=== PATIENT | male | born 1935 | race African-American/Black ===

== ENCOUNTER 2017-01-23 08:37 | Outpatient (CLI) | payer OTHER, MEDICARE ==
[2017-01-23] VITALS (10 sets, daily range): BP systolic 101–148; BP diastolic 58–84
[~2017-01-23] VITALS: Ht 172.7 cm; Wt 94.3 kg
[~2017-01-23 08:37] MED LIST: ACET325T9 PO; AMLO5TAB4 PO; CARV6.25 PO; FLAX1CAP6 PO; FURO-68 PO; Furosemide PO; HYDR-2869 PO; HYDR50TA6 PO; Hydralazine Hcl PO; LOSA1TAB16 PO; LOSA50TA2 PO; LOSA50TA6 PO; POTA10CA PO; RED600TA PO; RIVA10TA PO; RIVA20TA2 PO; WARF5TAB7 PO
[2017-01-23 09:15] LABS: CALCIUM 8.8 mg/dL (8.5-10.1); CREATININE 1.4 mg/dL (0.7-1.3); GFR 59.2
[2017-01-23 09:30] LABS: BASO % 1 % (0-3); EOS % 4 % (0-3); HEMATOCRIT 39.4 % (39.0-53.0); HEMOGLOBIN 13.3 g/dL (13.0-17.5); LYMPH # 1.7 x10^3/uL (1.0-4.8); LYMPH % 26 % (24-48); MEAN CORPUSCULAR HEMOGLOBIN 27 pg (25-35); MEAN CORPUSCULAR HGB CONC 34 g/dL (31-37); MEAN CORPUSCULAR VOLUME 81 fL (79-100); MONO % 11 % (0-9); NEUT % 58 % (31-73); PLATELET COUNT 112 x10^3/uL (140-400); RED BLOOD COUNT 4.86 x10^6/uL (4.30-5.70); RED CELL DISTRIBUTION WIDTH 15.2 % (11.5-14.5); WHITE BLOOD COUNT 6.7 x10^3/uL (4.0-11.0)
[2017-01-23 09:31] LABS: INR 1.2 (0.8-1.1); PROTHROMBIN TIME PATIENT 14.6 SEC (11.7-14.0)
[2017-01-23] MEDS ORDERED: LIDOCAINE 1% / SOD BICARB 8.4% 20 ML VIAL. IJ ONE ×2 (10:08→10:45)
[2017-01-23] MEDS ORDERED: NALOXONE 0.4 MG/ML VIAL. ONE (10:32)
[2017-01-23] MEDS ORDERED: FLUMAZENIL 0.5 MG/5 ML VIAL. IV ONE (10:32)
[2017-01-23] MEDS ORDERED: MIDAZOLAM HCL/PF 5 MG/5 ML VIAL. ONE (10:32)
[2017-01-23] MEDS ORDERED: FENTANYL PF 250 MCG/5 ML VIAL. ONE (10:32)
[2017-01-23] MEDS ORDERED: MIDAZOLAM HCL/PF 5 MG/5 ML VIAL. IV ONE (10:45)
[2017-01-23] MEDS ORDERED: FENTANYL PF 250 MCG/5 ML VIAL. IV ONE (10:45)
--- NOTE | 2017-01-23 11:07 | PDOC ---
MODERATE SEDATION ASSESSMENT RISKS/ALTERNATIVES Risks/Alternatives Risks and alternatives of this type of sedation and procedure discussed with: RISK/ALTERNATIVES: Patient H & P ON CHART H & P H & P on chart and reviewed for co-morbid conditions and appropriate labs. H&P ON CHART: Yes STATUS PREG STATUS ASSESSED: N/A MEDS/ALLERGIES REVIEWED Meds/Allergies Reviewed Medications and Allergies including time and route of recently administered narcotics and sedatives. MEDS/ALLERGIES REVIEWED: Yes ASA RATING ASA RATING: II AIRWAY ASSESSMENT Airway Assessment Airway patency, oral function limitations, presence of caps, crowns, dentures, partials, and ability to extend neck assessed. AIRWAY ASSESSMENT: Yes MALLAMPATI SCORE MALLAMPATI SCORE: II PRE-SEDATION ASSESSMENT PRE-SEDATION ASSESSMENT: Yes JALIL MAXWELL MD Jan 23, 2017 11:06
--- NOTE | 2017-01-23 11:09 | PDOC1 ---
History and Physical Date of Procedure Date of Admission 01/23/[address] guided bone marrow asp/bx Indication Indication Thrombocytopenia. Elevated [place] light chains. Past Medical History Past Medical History See Nursing Pre Procedure PMH Past Surgical History Past Surgical History See Nursing Pre Procedure PSH Current Medications Current Medications Current Medications Lidocaine/Sodium Bicarbonate (Buffered Lidocaine 1%) 20 ml STK-MED ONCE IJ ; Start 01/23/17 at 10:08; Stop 01/23/17 at 10:09; Status DC Naloxone HCl (Narcan) 0.4 mg STK-MED ONCE .ROUTE ; Start 01/23/17 at 10:32; Stop 01/23/17 at 10:33; Status DC Flumazenil (Romazicon) 0.5 mg STK-MED ONCE IV ; Start 01/23/17 at 10:32; Stop at 10:33; Status DC Midazolam HCl (Versed) 5 mg STK-MED ONCE .ROUTE ; Start 01/23/17 at 10:32; Stop 01/23/17 at 10:33; Status DC Fentanyl Citrate (Fentanyl 5ml Vial) 250 mcg STK-MED ONCE .ROUTE ; Start at 10:32; Stop 01/23/17 at 10:33; Status DC Lidocaine/Sodium Bicarbonate (Buffered Lidocaine 1%) 20 ml 1X ONCE IJ Last administered on 01/23/17t 10:59; Start 01/23/17 at 10:45; Stop 01/23/17 at 10:46 ; Status DC Midazolam HCl (Versed) 5 mg 1X ONCE IV Last administered on 01/23/17 10:59; Start 01/23/17 at 10:45; Stop 01/23/17 at 10:46; Status DC Fentanyl Citrate (Fentanyl 5ml Vial) 250 mcg 1X ONCE IV Last administered on 10:59; Start 01/23/17 at 10:45; Stop 01/23/17 at 10:46; Status DC Active Scripts Active Reported Losartan Potassium 50 Mg Tablet 2 Tab PO DAILY Tylenol (Acetaminophen) 325 Mg Tablet 325 Mg PO Q6HRS PRN Xarelto (Rivaroxaban) 20 Mg Tablet 20 Mg PO DAILY08 Norvasc (Amlodipine Besylate) 5 Mg Tablet 5 Mg PO DAILY Lasix (Furosemide) 40 Mg Tablet 40 Mg PO DAILY Potassium Chloride 10 Meq Capsule.er 10 Meq PO DAILY Allergies Allergies: Coded Allergies: No Known Drug Allergies (Unverified , 03/10/14) Physical Exam Vital Signs Vital Signs Date Time Temp Pulse Resp B/P Pulse Ox O2 Delivery O2 Flow Rate FiO2 01/23/17 11:00 45 12 97 Nasal Cannula 2.0 01/23/17 09:18 98.1 141/75 98.1 Lungs: Clear to auscultation Heart: Other (Irregularly irregular) Psych/Mental Status: Mental status NL Assessment Assessment Thrombocytopenia. Elevated [place] light chains. Problems: Plan Plan CT guided bone marrow asp/bx JALIL MAXWELL MD Jan 23, 2017 11:09
--- NOTE | 2017-01-23 11:13 | PDOC ---
Exam Vacation Guide Vacation Guide Jordi Pre-Procedure Diagnosis Pre-Procedure Diagnosis Thrombocytopenia. Elevated [place] light chains. Post-Procedure Diagnosis Post-Procedure Diagnosis Same Procedure Performed Procedure Performed CT guided bone marrow asp/bx Type of Anesthesia Type of Anesthesia Local + Mod sedation Estimated Blood Loss EBL: Minimal Specimens Specimans 6 cc bone marrow aspirate + 1 11G core bx-----to heme-path Condition of Patient Condition of Patient Stable. No apparent complication. Disposition Disposition Home from [facility] post recovery, if no problems. F/u with Dr Almonte. Full report to follow. JALIL MAXWELL MD Jan 23, 2017 11:13
--- NOTE | 2017-01-23 12:24 | RAD ---
CT-guided power drill assisted bone marrow aspiration and biopsy Indication: 81-year-old male with thrombocytopenia and with elevated [place] light chains. CT-guided bone marrow aspirate/biopsy has been requested by hematology-oncology. Anesthesia: 16 minutes moderate sedation was provided utilizing a total of 3 mg Versed and 150 mcg fentanyl, IV. The patient was appropriately monitored by a qualified independent observer throughout the time of moderate sedation. Procedure: Informed consent was obtained from the patient. He was placed prone on the CT scanner. Preliminary noncontrast CT images were obtained through pelvis. A left posterior skin site suitable for CT-guided bone marrow aspirate/biopsy from posterior left iliac bone was selected and marked. That area was prepped and draped in the usual sterile fashion. Conscious sedation was provided with IV Versed and fentanyl. Using aseptic technique, local anesthesia, and CT guidance, and the [employer] power snaker tractor driver, successful percutaneous entry was achieved through posterior cortex of left iliac bone. Approximately 6 cc of bone marrow was promptly aspirated, and was submitted to hematology personnel in the CT suite. Using CT guidance, the [employer] power snaker tractor driver was then utilized to obtain a single, 11-gauge core biopsy sample from marrow cavity of left iliac bone. Touch preparations were then made from the core biopsy sample, which was then submitted to pathology in formalin. A sterile dressing was applied over the biopsy skin puncture site. Patient tolerated the procedure well without apparent complication. Impression: Successful, uneventful CT-guided bone marrow aspirate and biopsy, utilizing the [employer] power snaker tractor driver biopsy system, as described. PQRS compliance statement: One or more of the following individualized dose reduction techniques were utilized for this CT procedure: 1. Automated exposure control. 2. Adjustment of MA and/or KV according to patient size. 3. Iterative reconstruction technique.
--- NOTE | 2017-01-23 13:28 | RAD ---
Indication thrombocytopenia. Anemia. Evaluate for lytic metastatic disease. A bone survey was performed. No prior bone survey is available. Single view chest: Heart size is slightly enlarged. There is no gross congestive heart failure. There is no focal infiltrate. Visualized bony structures appear grossly intact. Apart from slightly diminished inspiratory effort there has not been a significant change compared to the examination 2 years ago Spinal column. AP and lateral views of the cervical, thoracic and lumbar spine were obtained: There are significant degenerative changes in the cervical spine. There is multilevel disc space narrowing and osteophytes are seen at several levels. A discrete lytic focus or acute finding is not seen. In the thoracic spine vertebral height and alignment are unremarkable. Significant collapse or a lytic focus is not seen. No acute finding is apparent. In the lumbar spine there are similarly degenerative changes. There is significant disc space narrowing at L4-5 and mild disc space narrowing at L5-S1. There is slight anterolisthesis of L3 relative to L4. Facet degenerative changes are seen from L2-3 caudally. Vertebral height is well maintained. Acute finding is not seen. A lytic focus is not apparent. Upper extremities. AP views of both upper and lower arms were obtained. No discrete lytic focus is seen. Pelvis: Single view was obtained. No acute finding is seen. No lytic focus is apparent. Lower extremities. AP views of the upper and lower legs were obtained. No lytic focus is seen. There is vascular calcification. Skull. A single lateral view was obtained. No lytic focus or abnormality is seen. IMPRESSION: Negative bone survey for lytic disease. Musculoskeletal degenerative changes are noted
== END 2017-01-23 13:39 | disposition home or self-care (01) ==
LOC: INTRAD 08:37
PROVIDERS: ATTEND Internal Medicine Hematology & Oncology
DX: D64.9 Anemia, unspecified (principal); D69.49 Other primary thrombocytopenia; E78.00 Pure hypercholesterolemia, unspecified; I48.91 Unspecified atrial fibrillation; I10 Essential (primary) hypertension; E66.9 Obesity, unspecified
CPT/HCPCS: 36415; 38221; 77012; 77075; 80048; 85027; 85610; 88184; 88185; 88237; G0364; J2250; J3010